=== PATIENT | male | born 1995 | race Caucasian/White ===

== ENCOUNTER 2018-06-30 20:15 | Emergency (ER) | payer OTHER ==
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
[2018-06-30 22:19] VITALS: BP 127/72
== END 2018-06-30 22:18 | disposition home or self-care (01) ==
DX: S60.221A Contusion of right hand, initial encounter (principal); S80.01XA Contusion of right knee, initial encounter; S60.410A Abrasion of right index finger, initial encounter; V59.49XA Driver of pick-up truck or van injured in collision with other motor vehicles in traffic accident, initial encounter; Y92.9 Unspecified place or not applicable; Y93.9 Activity, unspecified; Y99.9 Unspecified external cause status
CPT/HCPCS: L1830